=== PATIENT | female | born 1960 | race Hispanic/Latino ===

== ENCOUNTER 2017-07-01 12:32 | Emergency (ER) | payer MEDICARE, MEDICAID ==
[2017-07-01 12:32] VITALS: BMI 31.1
[2017-07-01 12:35] VITALS: BP 120/78; PULSE 78; RESP 18; TEMP 98.2; O2SAT 98
--- NOTE | 2017-07-01 12:57 | ED PDOC ---
HPI: Back Time Seen by Provider: 07/01/17 12:44 Chief Complaint (Nursing): Back Pain Chief Complaint (Provider): Back Pain History Per: Patient History/Exam Limitations: no limitations Onset/Duration Of Symptoms: Days (x1) Current Symptoms Are (Timing): Still Present Additional Complaint(s): Reina Calderon is a 56 year old female with a history of diabetes that presents to the ED with a chief complaint of spinal pain that she has been experiencing for the past two days. Patient reports that she fell two days ago, during which she "twisted" her spine. She denies taking any medication for pain at home. Past Medical History Reviewed: Historical Data, Nursing Documentation, Vital Signs Vital Signs: Last Vital Signs Temp 98.2 F 07/01/17 12:33 Pulse 78 07/01/17 12:33 Resp 18 07/01/17 12:33 BP 120/78 07/01/17 12:33 Pulse Ox 98 07/01/17 12:33 - Medical History PMH: Anxiety, Diabetes, Fractures, HTN, Hypercholesterolemia, Hypothyroidism Denies: Arthritis, Asthma, Atrial Fibrillation, CHF, COPD, HIV, Chronic Kidney Disease, Seizures - Surgical History Surgical History: Denies: CABG, Pacemaker Other surgeries: 2 hip replacements - Family History Family History: States: Unknown Family Hx Denies: CAD - Social History Current smoker - smoking cessation education provided: Yes - Home Medications Home Medications: Ambulatory Orders Medication Instructions Recorded ALPRAZolam [Xanax] 1 mg PO BID PRN 02/12/16 Fenofibrate [Tricor] 145 mg PO DAILY 02/12/16 Ginkgo Biloba [place] Extract [Ginkgo 1 cap PO DAILY 02/12/16 Biloba] Levothyroxine [Synthroid] 25 mcg PO DAILY 02/12/16 Meclizine [Meclizine*] 25 mg PO Q8 PRN 02/12/16 Naproxen [Anaprox DS] 550 mg PO BID PRN 02/12/16 Ranitidine HCl [Zantac] 150 mg PO BID 02/12/16 Simvastatin [Zocor] 20 mg PO DAILY 02/12/16 amLODIPine [Norvasc] 5 mg PO DAILY 02/12/16 metFORMIN [glucOPHAGE] 500 mg PO DAILY 02/12/16 Turmeric/Turmeric Root Extract 500 mg PO DAILY #30 02/13/16 [Turmeric 450-50 mg Capsule] Ibuprofen [Motrin] 600 mg PO Q6 #20 tab 07/31/16 Lidocaine 1 each TP Q12 #12 adh..patch 07/31/16 oxyCODONE/Acetaminophen [Percocet 1 ea PO Q6 PRN #5 tab 07/31/16 5/325 mg Tab] Ibuprofen [Motrin] 600 mg PO Q6 #20 tab 12/02/16 traMADol [Ultram] 50 mg PO Q4 #10 tab 12/02/16 diaZEpam [Valium] 5 mg PO Q6H PRN #15 tab 07/01/17 oxyCODONE/Acetaminophen [Percocet 1 ea PO Q6H PRN #10 tab 07/01/17 5/325 mg Tab] - Allergies Allergies/Adverse Reactions: Allergies Allergy/AdvReac Type Severity Reaction Status Date / Time acetaminophen Allergy ITCHING Verified 12/02/16 10:29 [From Darvocet-N] propoxyphene napsylate Allergy ITCHING Verified 12/02/16 10:29 [From Darvocet-N] unknown name (pain medicine) Allergy URTICARIA Uncoded 12/02/16 10:29 Review of Systems ROS Statement: Except As Marked, All Systems Reviewed And Found Negative Constitutional: Negative for: Fever, Chills Musculoskeletal: Positive for: Back Pain Physical Exam - Reviewed Nursing Documentation Reviewed: Yes Vital Signs Reviewed: Yes - Physical Exam Appears: Positive for: Non-toxic, No Acute Distress Head Exam: Positive for: ATRAUMATIC, NORMOCEPHALIC Skin: Positive for: Normal Color, Warm Eye Exam: Positive for: EOMI, Normal appearance, PERRL ENT: Positive for: Normal ENT Inspection Neck: Positive for: Normal Cardiovascular/Chest: Positive for: Regular Rate, Rhythm Respiratory: Positive for: Normal Breath Sounds. Negative for: Accessory Muscle Use, Respiratory Distress Back: Positive for: Other (Paraspinal TTP, TTP from T spine through L spine). Negative for: Normal Inspection Extremity: Positive for: Normal ROM. Negative for: Deformity, Swelling Neurologic/Psych: Positive for: Alert, Oriented. Negative for: Motor/Sensory Deficits - ECG O2 Sat by Pulse Oximetry: 98 (RA) Pulse Ox Interpretation: Normal Medical Decision Making Medical Decision Making: Impression: Back Pain as a result of Fall Plan: * X-Ray Thoracic Spine * X-Ray Lumbar Spine * Valium 5 mg PO * Ibuprofen 600 mg PO * Reevaluation X-Ray Thoracic Spine FINDINGS: BONES: Alignment maintained. No fracture. DISC SPACES: Narrowed. SOFT TISSUES: Normal. OTHER FINDINGS: Partially imaged gastric lap band. IMPRESSION: No demonstrated fracture or dislocation. Degenerative changes. X-Ray Lumbar Spine FINDINGS: BONES: Normal alignment. No listhesis. No fracture. DISC SPACES: Multilevel narrowing with anterior osteophytic changes. OTHER FINDINGS: Gastric lap band. Bilateral hip arthroplasties. IMPRESSION: No demonstrated fracture or dislocation. Multilevel degenerative changes. Scribe Attestation: Documented by Janell Joseph, acting as a scribe for María Shine PA-C. Provider Scribe Attestation: All medical record entries made by the Scribe were at my direction and personally dictated by me. I have reviewed the chart and agree that the record accurately reflects my personal performance of the history, physical exam, medical decision making, and the department course for this patient. I have also personally directed, reviewed, and agree with the discharge instructions and disposition. Disposition - Clinical Impression Clinical Impression: Back pain - Patient ED Disposition Is Patient to be Admitted: No - Disposition Disposition: Routine/Home Disposition Time: 16:15 Condition: GOOD Prescriptions: diaZEpam [Valium] 5 mg PO Q6H PRN #15 tab PRN Reason: Pain oxyCODONE/Acetaminophen [Percocet 5/325 mg Tab] 1 ea PO Q6H PRN #10 tab PRN Reason: Pain, Severe (8-10) Instructions: Acute Low Back Pain (ED) Forms: [employer] (Hungarian)
--- NOTE | 2017-07-01 14:26 | RAD ---
PROCEDURE: Radiographs of the Lumbar Spine. HISTORY: back pain COMPARISON: Lumbar spine radiographs dated 01/24/2014. FINDINGS: BONES: Normal alignment. No listhesis. No fracture. DISC SPACES: Multilevel narrowing with anterior osteophytic changes. OTHER FINDINGS: Gastric lap band. Bilateral hip arthroplasties. IMPRESSION: No demonstrated fracture or dislocation. Multilevel degenerative changes.
--- NOTE | 2017-07-01 14:34 | RAD ---
HISTORY: back pain, tender COMPARISON: Correlations made to chest radiographs dated 02/12/2016. FINDINGS: BONES: Alignment maintained. No fracture. DISC SPACES: Narrowed. SOFT TISSUES: Normal. OTHER FINDINGS: Partially imaged gastric lap band. IMPRESSION: No demonstrated fracture or dislocation. Degenerative changes.
[2017-07-01] MEDS ORDERED: Morphine 4 MG/ML VIAL IM STA (15:10)
[2017-07-01] MEDS ORDERED: Morphine 4 MG/ML VIAL ONE (15:37)
== END 2017-07-01 16:24 | disposition home or self-care (01) ==
LOC: H.ER 12:32
DX: M54.5 Low back pain (principal); E03.9 Hypothyroidism, unspecified; E11.9 Type 2 diabetes mellitus without complications; E78.00 Pure hypercholesterolemia, unspecified; F41.9 Anxiety disorder, unspecified; I10 Essential (primary) hypertension; Z79.84 Long term (current) use of oral hypoglycemic drugs
CPT/HCPCS: 72070; 72100; 96372; 99282; J2270

== ENCOUNTER 2017-11-07 20:20 | Emergency (ER) | payer MEDICARE, MEDICAID ==
[2017-11-07 20:29] VITALS: BMI 31.8
[2017-11-07 20:33] VITALS: BP 142/74; PULSE 80; RESP 16; TEMP 97.5; O2SAT 97
--- NOTE | 2017-11-07 21:33 | ED PDOC ---
HPI: Back Time Seen by Provider: 11/07/17 20:52 Chief Complaint (Nursing): Back Pain Chief Complaint (Provider): Back Pain History Per: Patient History/Exam Limitations: no limitations Onset/Duration Of Symptoms: Mins (20) Current Symptoms Are (Timing): Still Present Quality Of Discomfort: "Pain" Previous Symptoms: None Associated Symptoms: None Additional Complaint(s): 56 y/o female with a history of DM, HTN, hypercholesterolemia, hypothyroidism, and chronic hip pain presents to the ED for sudden onset of right side pain. Patient states the pain is radiating to her low back for the past 20 minutes prior to arrival. She took oxycodone 20 mg PO to alleviate the pain prior to arrival. She denies any nausea, diarrhea, vomiting, fever or urinary symptoms. PMD: None provided - Risk Factors AAA Risk Factors: Pos: Older Than 49 Years Of Age, Hypertension Past Medical History Reviewed: Historical Data, Nursing Documentation, Vital Signs Vital Signs: Last Vital Signs Temp 97.5 F L 11/07/17 20:30 Pulse 80 11/07/17 20:30 Resp 16 11/07/17 20:30 BP 142/74 11/07/17 20:30 Pulse Ox 97 11/07/17 20:30 - Medical History PMH: Anxiety, Diabetes, Fractures, HTN, Hypercholesterolemia, Hypothyroidism Denies: Arthritis, Asthma, Atrial Fibrillation, CHF, COPD, HIV, Chronic Kidney Disease, Seizures - Surgical History Surgical History: Denies: CABG, Pacemaker - Family History Family History: States: Unknown Family Hx Denies: CAD - Social History Current smoker - smoking cessation education provided: No Ex-Smoker (has not smoked in the last 12 months): No Alcohol: None Drugs: Denies - Home Medications Home Medications: Ambulatory Orders Medication Instructions Recorded ALPRAZolam [Xanax] 1 mg PO BID PRN 02/12/16 Fenofibrate [Tricor] 145 mg PO DAILY 02/12/16 Ginkgo Biloba [place] Extract [Ginkgo 1 cap PO DAILY 02/12/16 Biloba] Levothyroxine [Synthroid] 25 mcg PO DAILY 02/12/16 Meclizine [Meclizine*] 25 mg PO Q8 PRN 02/12/16 Naproxen [Anaprox DS] 550 mg PO BID PRN 02/12/16 Ranitidine HCl [Zantac] 150 mg PO BID 02/12/16 Simvastatin [Zocor] 20 mg PO DAILY 02/12/16 amLODIPine [Norvasc] 5 mg PO DAILY 02/12/16 metFORMIN [glucOPHAGE] 500 mg PO DAILY 02/12/16 Turmeric/Turmeric Root Extract 500 mg PO DAILY #30 02/13/16 [Turmeric 450-50 mg Capsule] Ibuprofen [Motrin] 600 mg PO Q6 #20 tab 07/31/16 Lidocaine 1 each TP Q12 #12 adh..patch 07/31/16 oxyCODONE/Acetaminophen [Percocet 1 ea PO Q6 PRN #5 tab 07/31/16 5/325 mg Tab] Ibuprofen [Motrin] 600 mg PO Q6 #20 tab 12/02/16 traMADol [Ultram] 50 mg PO Q4 #10 tab 12/02/16 diaZEpam [Valium] 5 mg PO Q6H PRN #15 tab 07/01/17 oxyCODONE/Acetaminophen [Percocet 1 ea PO Q6H PRN #10 tab 07/01/17 5/325 mg Tab] Sulfamethoxazole/Trimethoprim 1 each PO BID #20 tablet 11/07/17 [Bactrim 400-80 mg Tablet] - Allergies Allergies/Adverse Reactions: Allergies Allergy/AdvReac Type Severity Reaction Status Date / Time acetaminophen Allergy ITCHING Verified 11/07/17 20:29 [From Darvocet-N] propoxyphene napsylate Allergy ITCHING Verified 11/07/17 20:29 [From Darvocet-N] unknown name (pain medicine) Allergy URTICARIA Uncoded 11/07/17 20:29 Review of Systems ROS Statement: Except As Marked, All Systems Reviewed And Found Negative Constitutional: Negative for: Fever, Chills Gastrointestinal: Negative for: Nausea, Vomiting, Diarrhea Musculoskeletal: Positive for: Other (right side pain radiating to back area) Physical Exam - Reviewed Nursing Documentation Reviewed: Yes Vital Signs Reviewed: Yes - Physical Exam Appears: Positive for: Well, Non-toxic, No Acute Distress Head Exam: Positive for: ATRAUMATIC, NORMAL INSPECTION, NORMOCEPHALIC Skin: Positive for: Normal Color, Warm, Dry Eye Exam: Positive for: EOMI, Normal appearance, PERRL ENT: Positive for: Normal ENT Inspection Neck: Positive for: Normal, Painless ROM, Supple Cardiovascular/Chest: Positive for: Regular Rate, Rhythm. Negative for: Murmur Respiratory: Positive for: Normal Breath Sounds. Negative for: Respiratory Distress Gastrointestinal/Abdominal: Positive for: Normal Exam, Soft. Negative for: Tenderness Back: Positive for: Normal Inspection. Negative for: L CVA Tenderness, R CVA Tenderness, Vertebral Tenderness Extremity: Positive for: Normal ROM. Negative for: Pedal Edema, Deformity Neurologic/Psych: Positive for: Alert, Oriented (x3). Negative for: Motor/ Sensory Deficits - ECG O2 Sat by Pulse Oximetry: 97 (RA) Pulse Ox Interpretation: Normal Medical Decision Making Medical Decision Making: Time: 20:30 Impression: Lower back pain to rule out UTI and/or kidney stone. Plan: * UDip * Toradol 30 mg IM * Urine Culture * Uranalysis (+) UTI Scribe Attestation: Documented by Danny Anton acting as a scribe María Shine PA-C. MD Scribe Attestation: All medical record entries made by the Scribe were at my direction and personally dictated by me. I have reviewed the chart and agree that the record accurately reflects my personal performance of the history, physical exam, medical decision making, and the department course for this patient. I have also personally directed, reviewed, and agree with the discharge instructions and disposition. Disposition - Clinical Impression Clinical Impression: UTI (urinary tract infection), Back pain - Patient ED Disposition Is Patient to be Admitted: No Counseled Patient/Family Regarding: Diagnosis, Need For Followup, Rx Given - Disposition Disposition: Routine/Home Disposition Time: 21:50 Condition: STABLE Prescriptions: Sulfamethoxazole/Trimethoprim [Bactrim 400-80 mg Tablet] 1 each PO BID #20 tablet Instructions: Urinary Tract Infections in Adults Forms: [facility] (Albanian)
[2017-11-07 21:53] LABS: SQUAMOUS EPITHIAL < 1 /hpf (0-5); URINE AMORPHOUS SEDIMENT RARE /ul (<OCC); URINE BACTERIA MANY (<OCC); URINE BILIRUBIN NEGATIVE (NEGATIVE); URINE BLOOD LARGE (NEGATIVE); URINE CLARITY SLIGHTY-CLOUDY (Clear); URINE COLOR YELLOW (YELLOW); URINE GLUCOSE (UA) NEG (Normal); URINE LEUKOCYTE ESTERASE SMALL Leu/uL (Negative); URINE PROTEIN NEGATIVE (NEGATIVE); URINE UROBILINOGEN 0.2-1.0 mg/dL (0.2-1.0)
== END 2017-11-07 22:00 | disposition home or self-care (01) ==
LOC: H.ER 20:20
DX: N39.0 Urinary tract infection, site not specified (principal); M54.5 Low back pain; E11.9 Type 2 diabetes mellitus without complications; I10 Essential (primary) hypertension; Z79.84 Long term (current) use of oral hypoglycemic drugs; Z87.891 Personal history of nicotine dependence; E03.9 Hypothyroidism, unspecified
CPT/HCPCS: 81003; 87086; 87181; 96372; 99283; J1885

== ENCOUNTER 2018-03-26 04:01 | Emergency (ER) | payer MEDICARE, MEDICAID ==
[2018-03-26 04:56] VITALS: BMI 29.0
[2018-03-26] MEDS ORDERED: Iohexol 240 (50 ml) PO ONE (04:56)
[2018-03-26 05:43] LABS: BASO % 0.4 % (0.0-2.0); EOS # 0.2 K/uL (0.0-0.7); EOS % 1.4 % (0.0-4.0); HEMOGLOBIN 14.6 g/dL (12.0-16.0); LYMPH # 1.9 K/uL (1.0-4.3); LYMPH % 15.3 % (20.0-40.0); MEAN CELL VOLUME 90.5 fl (81.0-99.0); MEAN CORPUSCULAR HEMOGLOBIN 30.2 pg (27.0-31.0); MEAN CORPUSCULAR HGB CONC 33.4 g/dL (33.0-37.0); MEAN PLATELET VOLUME 10.4 fl (7.2-11.7); MONO # 0.7 K/uL (0.0-0.8); MONO % 5.6 % (0.0-10.0); NEUT # 9.5 K/uL (1.8-7.0); NEUT % 77.3 % (50.0-75.0); RBC 4.85 Mil/uL (3.80-5.20); WHITE BLOOD COUNT 12.3 K/uL (4.8-10.8)
--- NOTE | 2018-03-26 05:51 | ED PDOC ---
HPI: Abdomen Time Seen by Provider: 03/26/18 04:17 Chief Complaint (Nursing): Abdominal Pain Chief Complaint (Provider): abdominal pain History Per: Patient History/Exam Limitations: no limitations Onset/Duration Of Symptoms: Mins (30 EVENT HOST) Current Symptoms Are (Timing): Still Present Associated Symptoms: denies: Fever, Chills, Nausea, Vomiting, Diarrhea, Urinary Symptoms Last Bowel Movement: Other (prior to arrival) Additional Complaint(s): Reina Williamson is a 57 year old female, with a past medical history of HTN, hypercholesterolemia, diabetes and hip surgeries, who presents to the emergency department complaining of right sided lower abdominal pain that radiates to right flank onset x30 min EVENT HOST. Patient reports she had a bowel movement prior to arrival. Pain is not associated with nausea, vomit, diarrhea, fever, chills or urinary symptoms. No further medical complaints. PMD: None provided. Past Medical History Reviewed: Historical Data, Nursing Documentation, Vital Signs Vital Signs: Last Vital Signs Temp 97.6 F 03/26/18 04:55 Pulse 63 03/26/18 04:55 Resp 18 03/26/18 04:55 BP 132/71 03/26/18 04:55 Pulse Ox 98 03/26/18 06:04 - Medical History PMH: Anxiety, Diabetes, Fractures, HTN, Hypercholesterolemia, Hypothyroidism Denies: Arthritis, Asthma, Atrial Fibrillation, CHF, COPD, HIV, Chronic Kidney Disease, Seizures - Surgical History Surgical History: Denies: CABG, Pacemaker Other surgeries: hip surgery - Family History Family History: States: Unknown Family Hx Denies: CAD - Social History Current smoker - smoking cessation education provided: Yes (light smoker <10 cigarettes daily) Alcohol: None Drugs: Denies - Home Medications Home Medications: Ambulatory Orders Medication Instructions Recorded ALPRAZolam [Xanax] 1 mg PO BID PRN 02/12/16 Fenofibrate [Tricor] 145 mg PO DAILY 02/12/16 Ginkgo Biloba [place] Extract [Ginkgo 1 cap PO DAILY 02/12/16 Biloba] Levothyroxine [Synthroid] 25 mcg PO DAILY 02/12/16 Meclizine [Meclizine*] 25 mg PO Q8 PRN 02/12/16 Naproxen [Anaprox DS] 550 mg PO BID PRN 07/13/16 Ranitidine HCl [Zantac] 150 mg PO BID 02/12/16 Simvastatin [Zocor] 20 mg PO DAILY 02/12/16 amLODIPine [Norvasc] 5 mg PO DAILY 02/12/16 metFORMIN [glucOPHAGE] 500 mg PO DAILY 02/12/16 Turmeric/Turmeric Root Extract 500 mg PO DAILY #30 02/13/16 [Turmeric 450-50 mg Capsule] Ibuprofen [Motrin] 600 mg PO Q6 #20 tab 07/31/16 Lidocaine 1 each TP Q12 #12 adh..patch 07/31/16 oxyCODONE/Acetaminophen [Percocet 1 ea PO Q6 PRN #5 tab 07/31/16 5/325 mg Tab] Ibuprofen [Motrin] 600 mg PO Q6 #20 tab 12/02/16 traMADol [Ultram] 50 mg PO Q4 #10 tab 12/02/16 diaZEpam [Valium] 5 mg PO Q6H PRN #15 tab 07/01/17 oxyCODONE/Acetaminophen [Percocet 1 ea PO Q6H PRN #10 tab 07/01/17 5/325 mg Tab] Sulfamethoxazole/Trimethoprim 1 each PO BID #20 tablet 11/07/17 [Bactrim 400-80 mg Tablet] - Allergies Allergies/Adverse Reactions: Allergies Allergy/AdvReac Type Severity Reaction Status Date / Time acetaminophen Allergy ITCHING Verified 11/07/17 20:29 [From Darvocet-N] propoxyphene napsylate Allergy ITCHING Verified 11/07/17 20:29 [From Darvocet-N] unknown name (pain medicine) Allergy URTICARIA Uncoded 11/07/17 20:29 Review of Systems ROS Statement: Except As Marked, All Systems Reviewed And Found Negative Constitutional: Negative for: Fever, Chills Gastrointestinal: Positive for: Abdominal Pain (right lower that radiates to right flank). Negative for: Nausea, Vomiting, Diarrhea Genitourinary Female: Negative for: Dysuria, Frequency, Incontinence Physical Exam - Reviewed Nursing Documentation Reviewed: Yes Vital Signs Reviewed: Yes - Physical Exam Appears: Positive for: No Acute Distress Head Exam: Positive for: ATRAUMATIC, NORMAL INSPECTION, NORMOCEPHALIC Skin: Positive for: Normal Color, Warm, Dry Eye Exam: Positive for: Normal appearance, EOMI, PERRL Neck: Positive for: Painless ROM Cardiovascular/Chest: Positive for: Regular Rate, Rhythm. Negative for: Murmur Respiratory: Positive for: Normal Breath Sounds. Negative for: Respiratory Distress Gastrointestinal/Abdominal: Positive for: Tenderness (Minimal right sided abdominal tenderness to palpation) Back: Negative for: L CVA Tenderness, R CVA Tenderness Extremity: Positive for: Normal ROM (upper and lower extremities). Negative for : Deformity, Swelling Neurologic/Psych: Positive for: Alert, Oriented. Negative for: Motor/Sensory Deficits - Laboratory Results Result Diagrams: 03/26/18 05:10 03/26/18 05:10 - ECG O2 Sat by Pulse Oximetry: 98 (RA) Pulse Ox Interpretation: Normal Medical Decision Making Medical Decision Making: Time: 04:17 A/P 57 y/o female presents with abdominal pain. Differential diagnosis includes : gas, bloating, appendicitis, colitis, diverticulitis. Of note reviewed [place] [facility] , patient has many prescriptions for opiates. Initial Plan: --Abd Pelvis PO or IV Contrast [CT] --CMP --Drug screen, urine --Lipase --CBC w/ differential --Enulose 20 gm --Omnipaque 240 ml 50 ml PO --Toradol 30 mg IVP --Urinalysis --Reevaluation 07:00 -Patient will be signed out to Dr. Newton, pending work up and reevaluation. ----- Scribe Attestation: Documented by Samson Dennis, acting as a scribe for Luciano Ferrara MD. Provider Scribe Attestation: All medical record entries made by the Scribe were at my direction and personally dictated by me. I have reviewed the chart and agree that the record accurately reflects my personal performance of the history, physical exam, medical decision making, and the department course for this patient. I have also personally directed, reviewed, and agree with the discharge instructions and disposition. Disposition - Clinical Impression Clinical Impression: Abdominal pain - Disposition Disposition: Transfer of Care Disposition Time: 07:00 Condition: STABLE Forms: [facility] (Ivorian) Patient Signed Over To: Srinivas Newton Handoff Comments: pending CT and re-eval
[2018-03-26 05:52] LABS: ALB/GLOB RATIO 1.2 (1.0-2.1); ALBUMIN 4.3 g/dL (3.5-5.0); ALT/SGPT 25 U/L (9-52); AST/SGOT 25 U/L (14-36); BLOOD UREA NITROGEN 20 mg/dl (7-17); CALCIUM 10.6 mg/dL (8.4-10.2); GFR NON-AFRICAN AMERICAN > 60; LIPASE 42 U/L (23-300)
[2018-03-26 08:17] LABS: SQUAMOUS EPITHIAL 4 /hpf (0-5); URINE BACTERIA FEW (<OCC); URINE BILIRUBIN NEGATIVE (NEGATIVE); URINE BLOOD LARGE (NEGATIVE); URINE CLARITY CLOUDY (Clear); URINE COLOR YELLOW (YELLOW); URINE GLUCOSE (UA) NEG (Normal); URINE LEUKOCYTE ESTERASE LARGE Leu/uL (Negative); URINE PROTEIN NEGATIVE (NEGATIVE); URINE UROBILINOGEN 0.2-1.0 mg/dL (0.2-1.0)
[2018-03-26 08:38] LABS: BARBITURATES, UR NEGATIVE (NEGATIVE); BENZODIAZEPINES, UR POSITIVE (NEGATIVE); OPIATES, UR POSITIVE (NEGATIVE); PHENCYCLIDINE, UR NEGATIVE (NEGATIVE)
--- NOTE | 2018-03-26 09:20 | CT ---
Date of service: 03/26/2018 PROCEDURE: CT Abdomen and Pelvis with Oral contrast. HISTORY: R sided abdominal pain COMPARISON: Comparison made with prior CT scan abdomen pelvis 06/14/2007. TECHNIQUE: Contiguous axial images of the abdomen and pelvis. Oral contrast was administered. No IV contrast given. Coronal and Sagittal reformats generated. Radiation dose: Total exam DLP = 762.4 mGy-cm. This CT exam was performed using one or more of the following dose reduction techniques: Automated exposure control, adjustment of the mA and/or kV according to patient size, and/or use of iterative reconstruction technique. FINDINGS: LOWER THORAX: Minimal passive/dependent type atelectasis both posterior lower lung pollard. Heart size upper limits of normal. There is a small hiatal hernia. LIVER: Liver exhibits normal size. Minimal fatty hepatic infiltration. . No gross lesion or ductal dilatation. GALLBLADDER AND BILE DUCTS: Unremarkable. No intraluminal gallbladder calculi. PANCREAS: Unremarkable. No mass. No ductal dilatation. SPLEEN: Unremarkable. No splenomegaly. ADRENALS: No adrenal lesions. Pacs KIDNEYS AND URETERS: Kidneys demonstrate symmetric nephrograms. . There is, cessation/a minimal dilatation of the right renal pelvis and right ureter however the UVJ region is obscured by crossing streak and beam hardening artifact. The possibility of a small distal ureteral calculus cannot be excluded. Clinical correlation with urinalysis. BLADDER: Urinary bladder is nearly completely obscured by crossing streak and beam hardening artifact arising from bilateral hip replacements. REPRODUCTIVE: Obscured by streak and beam hardening artifact arising from bilateral hip replacements APPENDIX: Normal appendix BOWEL: In situ gastric band. Visualized loops small bowel exhibit normal contour and caliber. No evidence of acute mechanical small bowel obstruction with oral contrast material seen extending into the colon to the level of the proximal descending colon. Moderate amount of stool seen throughout the large bowel consistent with mild fecal retention/ constipation. . . Note that the distal sigmoid/rectum partially obscured by crossing streak and beam hardening artifact arising from bilateral total hip replacements. PERITONEUM: Unremarkable. No fluid collection. No free air. LYMPH NODES: Unremarkable. No enlarged lymph nodes. VASCULATURE: Unremarkable. No aortic aneurysm. BONES: Mild multilevel degenerative spondylosis of the lower thoracic and lumbar spine. Bilateral total hip replacements result in crossing streak and beam hardening artifact partially obscuring the inferior pelvic contents including the uterus bladder and portion of the sigmoid and rectum OTHER FINDINGS: None. IMPRESSION: There is mild dilatation of the right renal pelvis and right ureter of uncertain etiology as the distal ureter and UVJ region including the urinary bladder obscured by crossing streak and beam hardening artifact arising from bilateral hip replacements. Correlation with urinalysis recommended. In situ gastric band. Minimal fatty hepatic infiltration. Findings consistent with constipation. Normal appendix.
--- NOTE | 2018-03-26 09:46 | ED PDOC ---
- Laboratory Results Result Diagrams: 03/26/18 05:10 03/26/18 05:10 - ECG O2 Sat by Pulse Oximetry: 98 (RA) - Progress Re-evaluation Time: 09:44 Condition: Improved Disposition - Clinical Impression Clinical Impression: Abdominal pain, UTI (urinary tract infection), Constipation - POA Present On Arrival: None - Disposition Referrals: [facility] [Outside] Disposition: Routine/Home Disposition Time: :44 Condition: FAIR Prescriptions: Lactulose 20 gm PO HS #1 solution Naproxen [Naprosyn] 500 mg PO Q12H #20 tab Sulfamethoxazole/Trimethoprim [Bactrim DS 800 mg-160 mg] 1 tab PO BID #20 tab Instructions: Urinary Tract Infections in Adults, Constipation in Adults Forms: [facility] (Grenadian)
[2018-03-26 09:55] VITALS: BP 122/74; PULSE 72; RESP 16; TEMP 98.1; O2SAT 97
== END 2018-03-26 09:54 | disposition home or self-care (01) ==
LOC: H.ER 04:01
DX: R10.9 Unspecified abdominal pain (principal); E11.9 Type 2 diabetes mellitus without complications; I10 Essential (primary) hypertension; Z79.84 Long term (current) use of oral hypoglycemic drugs; Z96.643 Presence of artificial hip joint, bilateral; F17.210 Nicotine dependence, cigarettes, uncomplicated; N39.0 Urinary tract infection, site not specified; K59.00 Constipation, unspecified
CPT/HCPCS: 74177; 80053; 81003; 83690; 85025; 87086; 96374; 99284; G0480; J1885; Q9966

== ENCOUNTER 2018-08-14 10:52 | Emergency (ER) | payer MEDICARE, MEDICAID ==
[2018-08-14 10:53] VITALS: BMI 29.0
--- NOTE | 2018-08-14 11:51 | ED PDOC ---
Lower Extremity Pain/Injury Time Seen by Provider: 08/14/18 11:06 Chief Complaint (Nursing): Lower Extremity Problem/Injury Chief Complaint (Provider): Lower Extremity Problem/Injury History Per: Patient History/Exam Limitations: no limitations Onset/Duration Of Symptoms: Persistent Current Symptoms Are (Timing): Still Present Additional Complaint(s): 57 year old female presents to ED with a complaint of persistent hip pain bilaterally with difficulty walking since operation "many years ago". She follows with a pain management doctor whom prescribed mediation last week but patient could not fill Rx, thus, prompting ED visit. Patient cannot recall name of medications but states that "Motrin and Tylenol doesn't help". No further medical complaints offered. PCP: does not recall Pain management: Dr. Hidalgo Past Medical History Reviewed: Historical Data, Nursing Documentation, Vital Signs Vital Signs: Last Vital Signs Temp 97.3 F L 08/14/18 10:57 Pulse 85 08/14/18 10:57 Resp 17 08/14/18 10:57 BP 137/73 08/14/18 10:57 Pulse Ox 99 08/14/18 10:57 - Medical History PMH: Anxiety, Diabetes, Fractures, HTN, Hypercholesterolemia, Hypothyroidism Denies: Arthritis, Asthma, Atrial Fibrillation, CHF, COPD, HIV, Chronic Kidney Disease, Seizures - Surgical History Surgical History: Denies: CABG, Pacemaker - Family History Family History: States: Unknown Family Hx Denies: CAD - Social History Current smoker - smoking cessation education provided: Yes Alcohol: None Drugs: Denies - Home Medications Home Medications: Ambulatory Orders Medication Instructions Recorded ALPRAZolam [Xanax] 1 mg PO BID PRN 02/12/16 Fenofibrate [Tricor] 145 mg PO DAILY 02/12/16 Ginkgo Biloba [place] Extract [Ginkgo 1 cap PO DAILY 02/12/16 Biloba] Levothyroxine [Synthroid] 25 mcg PO DAILY 02/12/16 Meclizine [Meclizine*] 25 mg PO Q8 PRN 02/12/16 Naproxen [Anaprox DS] 550 mg PO BID PRN 02/12/16 Ranitidine HCl [Zantac] 150 mg PO BID 02/12/16 Simvastatin [Zocor] 20 mg PO DAILY 02/12/16 amLODIPine [Norvasc] 5 mg PO DAILY 02/12/16 metFORMIN [glucOPHAGE] 500 mg PO DAILY 02/12/16 Turmeric/Turmeric Root Extract 500 mg PO DAILY #30 02/13/16 [Turmeric 450-50 mg Capsule] Ibuprofen [Motrin] 600 mg PO Q6 #20 tab 07/31/16 Lidocaine 1 each TP Q12 #12 adh..patch 07/31/16 oxyCODONE/Acetaminophen [Percocet 1 ea PO Q6 PRN #5 tab 07/31/16 5/325 mg Tab] Ibuprofen [Motrin] 600 mg PO Q6 #20 tab 12/02/16 traMADol [Ultram] 50 mg PO Q4 #10 tab 12/02/16 diaZEpam [Valium] 5 mg PO Q6H PRN #15 tab 07/01/17 oxyCODONE/Acetaminophen [Percocet 1 ea PO Q6H PRN #10 tab 07/01/17 5/325 mg Tab] Sulfamethoxazole/Trimethoprim 1 each PO BID #20 tablet 11/07/17 [Bactrim 400-80 mg Tablet] Lactulose 20 gm PO HS #1 solution 03/26/18 Naproxen [Naprosyn] 500 mg PO Q12H #20 tab 03/26/18 Sulfamethoxazole/Trimethoprim 1 tab PO BID #20 tab 03/26/18 [Bactrim DS 800 mg-160 mg] Lidocaine 5% [Lidoderm] 1 ea TD DAILY PRN #6 patch 08/14/18 - Allergies Allergies/Adverse Reactions: Allergies Allergy/AdvReac Type Severity Reaction Status Date / Time acetaminophen Allergy ITCHING Verified 11/07/17 20:29 [From Darvocet-N] propoxyphene napsylate Allergy ITCHING Verified 11/07/17 20:29 [From Darvocet-N] unknown name (pain medicine) Allergy URTICARIA Uncoded 11/07/17 20:29 Review of Systems ROS Statement: Except As Marked, All Systems Reviewed And Found Negative Musculoskeletal: Positive for: Other (bilateral hip with difficulty ambulating) Physical Exam - Reviewed Nursing Documentation Reviewed: Yes Vital Signs Reviewed: Yes - Physical Exam Appears: Positive for: Non-toxic, No Acute Distress Head Exam: Positive for: ATRAUMATIC, NORMAL INSPECTION, NORMOCEPHALIC Skin: Positive for: Normal Color. Negative for: Rash Eye Exam: Positive for: Normal appearance Gastrointestinal/Abdominal: Positive for: Normal Exam, Soft. Negative for: Tenderness Back: Positive for: Normal Inspection Extremity: Positive for: Normal ROM (upper/lower), Tenderness (lateral hip bilaterally). Negative for: Deformity (bilateral hip) Neurologic/Psych: Positive for: Alert, Oriented. Negative for: Motor/Sensory Deficits, Aphasia - ECG O2 Sat by Pulse Oximetry: 99 (RA) Pulse Ox Interpretation: Normal Medical Decision Making Medical Decision Making: Time: 112 Initial Plan: * Toradol 30mg IM * XR hip (GREGG) Time: 1130 --Upon review of [facility] report, patient last filled Rx for Oxycontin and Oxycodone at the same time on 07/20/18. Xanax was filled on 08/06/18. Accession No. : [id number] Patient Name / ID : BECKIE GUERRERO / [id number] Exam Date : 08/14/2018 11:24:21 ( Approved ) Study Comment : Sex / Age : F / 57Y Creator : Marcin Benavides MD Dictator : Marcin Benavides MD Medicare Coordinator : Vp Production : Marcin Benavides MD Approver2 : Report Date : 08/14/2018 17:45:00 My Comment : Date of service: 08/14/2018 PROCEDURE: BILATERAL HIPS WITH PELVIS RADIOGRAPHS HISTORY: Bilateral hip pain COMPARISON: CT abdomen pelvis 03/26/2018. TECHNIQUE: Frontal views of the bilateral hip joints been submitted with pelvis and isolated bilateral frog-leg lateral views of the bilateral hip joints. FINDINGS: Patient status post bilateral total replacement hardware deployment which appear in good apparent position and do not demonstrate failure at this time. Pubic bones are intact including pubic symphysis as well as the iliac bones. Sacroiliac joint degenerative changes appear moderate to severe with sacrum unremarkable grossly. Local soft tissues appear diffusely unremarkable. IMPRESSION: Status post bilateral total replacement without evidence of orthopedic hardware failure at this time grossly. No fracture, subluxation or dislocation bilateral hip joints. Pelvic ring appears intact grossly. Scribe Attestation: Documented by Rosario Guerrero, acting as a scribe for Yessy Chadwick MD. Provider Scribe Attestation: All medical record entries made by the Scribe were at my direction and personally dictated by me. I have reviewed the chart and agree that the record accurately reflects my personal performance of the history, physical exam, medical decision making, and the department course for this patient. I have also personally directed, reviewed, and agree with the discharge instructions and disposition. Disposition - Clinical Impression Clinical Impression: Chronic hip pain after total replacement of hip joint - Disposition Disposition: Routine/Home Disposition Time: 13:38 Condition: STABLE Additional Instructions: FOLLOW-UP WITH PMD WITHIN 2 DAYS FOR REEVALUATION. Prescriptions: Lidocaine 5% [Lidoderm] 1 ea TD DAILY PRN #6 patch PRN Reason: Pain, Moderate (4-7) Instructions: Hip Pain Forms: [employer] ([place])
[2018-08-14 13:46] VITALS: BP 138/78; PULSE 82; RESP 16; TEMP 97.8
--- NOTE | 2018-08-14 17:48 | RAD ---
Date of service: 08/14/2018 PROCEDURE: BILATERAL HIPS WITH PELVIS RADIOGRAPHS HISTORY: Bilateral hip pain COMPARISON: CT abdomen pelvis 03/26/2018. TECHNIQUE: Frontal views of the bilateral hip joints been submitted with pelvis and isolated bilateral frog-leg lateral views of the bilateral hip joints. FINDINGS: Patient status post bilateral total replacement hardware deployment which appear in good apparent position and do not demonstrate failure at this time. Pubic bones are intact including pubic symphysis as well as the iliac bones. Sacroiliac joint degenerative changes appear moderate to severe with sacrum unremarkable grossly. Local soft tissues appear diffusely unremarkable. IMPRESSION: Status post bilateral total replacement without evidence of orthopedic hardware failure at this time grossly. No fracture, subluxation or dislocation bilateral hip joints. Pelvic ring appears intact grossly.
[2018-08-17 15:25] VITALS: O2SAT 99
== END 2018-08-14 13:46 | disposition home or self-care (01) ==
LOC: H.ER 10:52
DX: M25.551 Pain in right hip (principal); M25.552 Pain in left hip; Z96.641 Presence of right artificial hip joint
CPT/HCPCS: 73522; 96372; 99283; J1885